=== PATIENT | male | born 1945 | race Caucasian/White ===

== ENCOUNTER 2022-08-30 07:01 | Outpatient (CLI) | payer MEDICARE, SELFPAY ==
--- NOTE | ~2022-08-30 | MR_ITS ---
EXAMINATION: MR shoulder RT wo con DATE: 08/30/2022 08:06 INDICATION: Chronic right shoulder pain TECHNIQUE: Magnetic resonance imaging (MRI) of the right shoulder was performed without intravenous c ontrast. Sequences included axial PD-weighted FS FSE, coronal oblique PD-weighted FS FSE, coronal obl ique T2-weighted FS FSE, sagittal PD-weighted FS FSE, and sagittal T1-weighted SE. COMPARISON: None. FINDINGS: Coracoacromial arch: The acromion undersurface is flat in morphology (type I). There is mild thickening of the coracoacrom ial ligament at its acromial insertion. Moderate acromioclavicular osteoarthritis with subarticular c ystic changes primarily along the acromial side of the joint space and tiny marginal osteophytes. Rotator cuff: Severe supraspinatus and moderate infraspinatus tendinopathy without discrete tears. There are small intrasubstance ganglion cysts extending medially within the infraspinatus tendon and muscle. 7 cm med ially from the footplate. The teres minor tendon is normal. Moderate subscapularis tendinopathy. Ther e is a small partial tear involving the superomedial quadrant of the lesser tuberosity footplate of t he tendon with increased fluid signal and disorganized appearing ligament fibers extending up to 2 cm medially from the footplate. No asymmetric rotator cuff muscle atrophy or abnormal signal. Biceps tendon, glenoid labrum and glenohumeral cartilage: Long head of the biceps tendon is normal. Glenoid labrum is normal. There is nonuniform partial thick ness cartilage loss at the anterosuperior glenoid where there is mild subarticular edema-like signal change. Additional partial thickness cartilage loss along the inferomedial aspect of the humeral head . Fluid: Physiologic amount of fluid in the glenohumeral joint and biceps tendon sheath. No loose osteochondr al bodies. Small amount of fluid in the subacromial/subdeltoid bursa consistent with mild bursitis. Bones/other: Bone alignment is normal. No fracture or pathologic marrow replacing process. Mild hypertrophic christianson e along the lesser and greater tuberosities as well as mild cystic changes along the greater tuberosi ty. There is nonspecific thickening of the anterior capsule and at the middle and anterior inferior g lenohumeral ligaments. This can be seen in the setting of adhesive capsulitis which is a clinical fin ding. There is however no loss of the normal fat signal at the rotator cuff interval which is also a frequent finding of adhesive capsulitis. IMPRESSION: 1. Severe supraspinatus and moderate infraspinatus and subscapularis tendinopathy with small partial thickness articular sided tear along the superomedial quadrant of the lesser tuberosity footplate of the subscapularis tendon. 2. Mild right glenohumeral and moderate acromioclavicular osteoarthritis. 3. Prominent thickening of the anterior capsule and middle and anterior inferior glenohumeral ligamen ts which can be seen in the spring of adhesive capsulitis which is a clinical diagnosis. Reviewed, dictated and finalized at location B. IMPRESSION: 1. Severe supraspinatus and moderate infraspinatus and subscapularis tendinopat hy with small partial thickness articular sided tear along the superomedial raul drant of the lesser tuberosity footplate of the subscapularis tendon. 2. Mild right glenohumeral and moderate acromioclavicular osteoarthritis. 3. Prominent thickening of the anterior capsule and middle and anterior inferio r glenohumeral ligaments which can be seen in the spring of adhesive capsulitis which is a clinical diagnosis.
== END 2022-08-30 07:02 | disposition home or self-care (01) ==
PROVIDERS: Visit Provider Specialist
DX: M19.011 Primary osteoarthritis, right shoulder (principal)
CPT/HCPCS: 73221

== ENCOUNTER 2024-09-26 09:42 | Outpatient (CLI) | payer MEDICARE, SELFPAY ==
--- NOTE | 2024-09-26 | ECG_ITS ---
Test Date: 2024-09-26 10:53:30 Measurements Intervals [place] Rate: 75 P: 53 AR: 170 QRS: -19 QRSD: 98 T: 6 QT: 391 QTc: 438 Interpretive Statements SINUS RHYTHM INCOMPLETE RIGHT BUNDLE BRANCH BLOCK LOW QRS VOLTAGE IN PRECORDIAL LEADS BORDERLINE T WAVE ABNORMALITY- INFERIOR LEADS BASELINE ARTIFACT- I, III, AVR, AVL, AVF BORDERLINE ECG No previous ECG available for comparison Electronically Signed On 09-26-2024 10:58:17 [employer] ADMINISTRATOR by Juan C Gay D.O.
== END 2024-09-26 09:43 | disposition home or self-care (01) ==
PROVIDERS: Visit Provider Podiatrist Foot & Ankle Surgery
DX: R94.31 Abnormal electrocardiogram [ECG] [EKG] (principal); R03.0 Elevated blood-pressure reading, without diagnosis of hypertension
CPT/HCPCS: 93005